=== PATIENT | male | born 2000 | race Caucasian/White ===

== ENCOUNTER 2021-04-29 11:41 | Outpatient (REF) | payer BC, SELFPAY ==
[2021-05-01 12:04] LABS: COVID-19 RT-PCR UVMMC Result Negative (Negative)
== END 2021-04-29 11:42 | disposition home or self-care (01) ==
LOC: LBN 11:41
PROVIDERS: Visit Provider Physician Assistant Medical
DX: Z20.822 Contact with and (suspected) exposure to COVID-19 (principal); J06.9 Acute upper respiratory infection, unspecified; J02.9 Acute pharyngitis, unspecified
CPT/HCPCS: U0003; 87070